=== PATIENT | female | born 1960 | race African-American/Black ===

== ENCOUNTER 2024-01-28 16:48 | Emergency (ER) | payer OTHER, MEDICARE ==
[2024-01-28 16:54] VITALS: RESP 18; BMI 33.3
[2024-01-28] MEDS ORDERED: ACETAMINOPHEN INJECTION 100 ML IVPB ONE (17:38)
[2024-01-28] MEDS: ACETAMINOPHEN 1000 MG/100 ML BAG IVPB ONE (18:45)
[2024-01-28 18:52] LABS: BASO % 0.6 % (0-2.0); EOS % 0.6 % (0-4.5); HEMATOCRIT 31.1 % (32.4-45.2); HEMOGLOBIN 10.3 GM/dL (10.7-15.3); LYMPH % 28.9 % (8-40); MCH 26.9 pg (25.7-33.7); MCHC 33.2 g/dl (32.0-36.0); MEAN PLT VOLUME 6.8 fl (7.5-11.1); MONO % 7.3 % (3.8-10.2); NEUT % 62.6 % (42.8-82.8); PLATELET COUNT 352 10^3/uL (134-434); RBC 3.84 M/mm3 (3.60-5.2); RDW 15.4 % (11.6-15.6); WHITE BLOOD COUNT 7.4 K/mm3 (4.0-10.0)
[2024-01-28 18:57] LABS: INR 1.08 (0.83-1.09); PROTHROMBIN TIME (PATIENT) 12.4 SEC (9.7-13.0)
[2024-01-28 19:12] LABS: POTASSIUM 3.8 mmol/L (3.5-5.1)
[2024-01-28] MEDS ORDERED: DALBAVANCIN HCL 500 MG VIAL (RESTRICTED TO ID ONLY) IVPB ONE (19:13)
[2024-01-28 19:14] LABS: ALBUMIN 3.6 g/dl (3.4-5.0); BLOOD UREA NITROGEN 10.6 mg/dL (7-18); CALCIUM 9.6 mg/dL (8.5-10.1)
[2024-01-28 19:20] LABS: BILIRUBIN,TOTAL 0.3 mg/dL (0.2-1)
[2024-01-28] MEDS: DALBAVANCIN HCL 1,500 MG in DEXTROSE 5%-WATER - 500 ML IVPB ONE (19:23)
[2024-01-28 19:41] LABS: ERYTHROCYTE SEDIMENTATION RATE 28 mm/hr (0-30)
[2024-01-28] MEDS ORDERED: BACITRACIN ZINC 15 GM TUBE TOPICAL OINTMENT ONE (19:57)
[2024-01-28 20:39] VITALS: BP 118/74; PULSE 76; TEMP 98.3
== END 2024-01-28 20:39 | disposition home or self-care (01) ==
LOC: JER 16:48
PROC: 3E03329 Introduction of Other Anti-infective into Peripheral Vein, Percutaneous Approach (ICD-10-PCS; principal; 2024-01-28)
PROC: 3E033NZ Introduction of Analgesics, Hypnotics, Sedatives into Peripheral Vein, Percutaneous Approach (ICD-10-PCS; 2024-01-28)
DX: T81.31XA Disruption of external operation (surgical) wound, not elsewhere classified, initial encounter (principal); Y83.8 Other surgical procedures as the cause of abnormal reaction of the patient, or of later complication, without mention of misadventure at the time of the procedure
CPT/HCPCS: 36415; 73610-TC-LT-FY; 80053; 85025; 85610; 85651; 86140; 86850; 86900; 86901; 87040; 99284-25; J0131; J0875

== ENCOUNTER 2024-02-10 19:16 | Inpatient (IN) | payer OTHER, MEDICARE ==
[2024-02-10 20:52] LABS: BASO % 0.8 % (0-2.0); EOS % 1.4 % (0-4.5); HEMATOCRIT 32.5 % (32.4-45.2); HEMOGLOBIN 10.7 GM/dL (10.7-15.3); LYMPH % 34.2 % (8-40); MCH 26.2 pg (25.7-33.7); MEAN CELL VOLUME 79.5 fl (80-96); MONO % 24.3 % (3.8-10.2); NEUT % 39.3 % (42.8-82.8); PLATELET COUNT 304 10^3/uL (134-434); RBC 4.08 M/mm3 (3.60-5.2); RDW 15.6 % (11.6-15.6); WHITE BLOOD COUNT 3.5 K/mm3 (4.0-10.0)
[2024-02-10 21:00] LABS: INR 1.05 (0.83-1.09); PROTHROMBIN TIME (PATIENT) 11.9 SEC (9.7-13.0)
[2024-02-10 21:03] LABS: ACTIVATED PTT 37.1 SECONDS (25.2-36.5)
[2024-02-10 21:15] LABS: ALBUMIN 3.9 g/dl (3.4-5.0); CALCIUM 9.3 mg/dL (8.5-10.1)
[2024-02-10 21:18] LABS: CREATININE 1.2 mg/dL (0.55-1.3)
[2024-02-10 21:20] LABS: BILIRUBIN,TOTAL 0.2 mg/dL (0.2-1); TOT PROT 7.6 g/dl (6.4-8.2)
[2024-02-11 01:12] LABS: URINE APPEARANCE CLEAR; URINE BILIRUBIN NEGATIVE (NEGATIVE); URINE COLOR YELLOW; URINE GLUCOSE (UA) NEGATIVE (NEGATIVE); URINE KETONE TRACE (NEGATIVE); URINE LEUK ESTERASE NEGATIVE (NEGATIVE); URINE NITRITE NEGATIVE (NEGATIVE); URINE PROTEIN NEGATIVE (NEGATIVE); URINE UROBILINOGEN 0.2 mg/dL (0.2-1.0)
[2024-02-11] MEDS: SODIUM CHLORIDE 1,000 ML IV STA (01:19)
[2024-02-11] MEDS ORDERED: VANCOMYCIN 1,000 MG in DEXTROSE 5%-WATER - 250 ML IVPB ONE (01:35)
[2024-02-11] MEDS ORDERED: PIPERACILLIN/TAZOB 3.375 GM 3.375 GM/50 ML BAG IVPB ONE (01:39)
[2024-02-11] MEDS: PIPERACILLIN/TAZOB 3.375 GM 3.375 GM in DEXTROSE 5%-WATER - 50 ML IVPB ONE (01:48)
[2024-02-11] MEDS: VANCOMYCIN/WATER FOR INJ (PEG) 1,000 MG/200 ML BAG IVPB ONE (02:42)
[2024-02-11 02:55] LABS: MAGNESIUM 1.9 mg/dL (1.8-2.4)
[2024-02-11 03:22] VITALS: BMI 31.6
[2024-02-11] MEDS ORDERED: ACETAMINOPHEN 1000 MG/100 ML BAG IVPB PRN (05:54)
[2024-02-11] MEDS: ACETAMINOPHEN 1000 MG/100 ML BAG IVPB ONE (06:11)
[2024-02-11] MEDS: SODIUM CHLORIDE 1,000 ML IV SCH (06:38)
[2024-02-11 09:20] LABS: HEMATOCRIT 28.7 % (32.4-45.2); HEMOGLOBIN 9.5 GM/dL (10.7-15.3); MCH 26.6 pg (25.7-33.7); MCHC 33.2 g/dl (32.0-36.0); MEAN PLT VOLUME 7.4 fl (7.5-11.1); PLATELET COUNT 262 10^3/uL (134-434); RBC 3.59 M/mm3 (3.60-5.2); RDW 15.2 % (11.6-15.6); WHITE BLOOD COUNT 2.7 K/mm3 (4.0-10.0)
[2024-02-11 09:43] LABS: POTASSIUM 3.8 mmol/L (3.5-5.1)
[2024-02-11 09:46] LABS: CALCIUM 8.7 mg/dL (8.5-10.1)
[2024-02-11 09:47] LABS: ALBUMIN 3.4 g/dl (3.4-5.0); BLOOD UREA NITROGEN 8.3 mg/dL (7-18); MAGNESIUM 1.9 mg/dL (1.8-2.4)
[2024-02-11] MEDS: ENOXAPARIN NA (PORCINE) 40 MG/0.4 ML DISP.SYRIN SQ SCH (09:49)
[2024-02-11 09:50] LABS: PHOSPHOROUS 3.7 mg/dL (2.5-4.9)
[2024-02-11 09:52] LABS: BILIRUBIN,TOTAL 0.3 mg/dL (0.2-1); TOT PROT 6.3 g/dl (6.4-8.2)
[2024-02-11 10:21] LABS: ANISOCYTOSIS 3+; MACROCYTOSIS 0
[2024-02-11] MEDS: ASPIRIN COATED 81 MG TABLET.EC PO SCH (15:14)
[2024-02-11 19:06] VITALS: RESP 18
[2024-02-11] MEDS: ATORVASTATIN CA 20 MG TABLET (FP) PO SCH (22:01)
[2024-02-11] MEDS: LATANOPROST 0.005% OPHTH SOLN 2.5ML BOTTLE OU SCH (22:01)
[2024-02-11] MEDS: diphenhydrAMINE HCL 25 MG CAPSULE (FP) PO ONE (23:37)
[2024-02-12 06:26] VITALS: BP 113/80; PULSE 77; TEMP 98.4
[2024-02-12 09:26] LABS: HEMATOCRIT 31.3 % (32.4-45.2); HEMOGLOBIN 10.4 GM/dL (10.7-15.3); MCH 26.5 pg (25.7-33.7); MCHC 33.1 g/dl (32.0-36.0); MEAN PLT VOLUME 7.7 fl (7.5-11.1); PLATELET COUNT 287 10^3/uL (134-434); POTASSIUM 4.2 mmol/L (3.5-5.1); RBC 3.91 M/mm3 (3.60-5.2); RDW 15.4 % (11.6-15.6); WHITE BLOOD COUNT 3.8 K/mm3 (4.0-10.0)
[2024-02-12 09:30] LABS: CALCIUM 9.1 mg/dL (8.5-10.1)
[2024-02-12 09:31] LABS: ALBUMIN 3.6 g/dl (3.4-5.0); MAGNESIUM 1.9 mg/dL (1.8-2.4)
[2024-02-12 09:34] LABS: CREATININE 0.9 mg/dL (0.55-1.3)
[2024-02-12 09:35] LABS: BILIRUBIN,TOTAL 0.2 mg/dL (0.2-1); TOT PROT 6.8 g/dl (6.4-8.2)
[2024-02-12 10:31] LABS: ANISOCYTOSIS 0; MACROCYTOSIS 0
== END 2024-02-12 15:28 | disposition home or self-care (01) | DRG 864 ==
LOC: JER 19:16 → JERBED 23:27 → J8W 02-11 02:14
PROVIDERS: ADMIT Internal Medicine; ATTEND Internal Medicine
DX: R50.2 Drug induced fever (principal); I10 Essential (primary) hypertension; H40.9 Unspecified glaucoma; E78.5 Hyperlipidemia, unspecified; T36.8X5A Adverse effect of other systemic antibiotics, initial encounter
CPT/HCPCS: 0241U-QW; 36415; 71045-TC-FY; 71275-TC; 73610-TC-LT-FY; 80053; 81003; 82930; 83010; 83605; 83735; 84100; 85025; 85379; 85610; 85651; 85730; 86038; 86140; 86618; 87040; 87086; 87798; 93005; 93010; 93306-TC; 93971-TC; 99285-25; J0131; Q9967